=== PATIENT | male | born 1935 | race African-American/Black ===

== ENCOUNTER 2019-09-26 17:21 | Inpatient (IN) | payer MEDICARE ==
[2019-09-26 17:48] VITALS: BMI 24.0
[2019-09-26] MEDS: Atorvastatin Calcium 10 MG TAB PO SCH (22:09)
[2019-09-26] MEDS: Latanoprost 0.005% Ophth Soln 2.5 ml Bottle EA EYE SCH (22:10)
[2019-09-26] MEDS: OPTH EA EYE SCH (22:11)
[2019-09-26] MEDS: COMBIGAN EA EYE SCH (22:11)
[2019-09-27 05:38] LABS: Band 2 % (5-11); Eosinophils 8 % (0-10); Hemoglobin 11.6 g/dL (14.0-18.0); Hypochromia MODERATE=16-30 cells (100X) (0-5/hpf); Lymphocytes 30 % (21-51); MDiff Complete? YES; Mean Corpuscular HGB CONC 31.6 g/dL (32.0-36.0); Mean Corpuscular Hemoglobin 29.8 pg (27.0-31.0); Mean Corpuscular Volume 94.3 fL (78.0-98.0); Mean Platelet Volume 10.2 fL (7.4-10.4); Monocytes 9 % (0-10); Neutrophil 47 % (42-75); Platelet Count 286 thou/uL (130-400); Platelet Morphology Comment Appears Adequate; RBC Distribution Width 13.7 % (11.5-14.5); Reactive Lymphocytes 4 % (0-10); Red Blood Cell (RBC) Count 3.89 mill/uL (4.70-6.10); White Blood Cell (WBC) Count 5.1 thou/uL (4.8-10.8)
[2019-09-27 05:43] LABS: ALT (SGPT) 45 U/L (8-55); AST (SGOT) 51 U/L (5-34); Albumin 3.3 g/dL (3.4-4.8); Alkaline Phosphatase 95 U/L (40-110); Anion Gap 19 mmol/L (10-20); BUN (Urea Nitrogen) 16 mg/dL (8.4-25.7); Bilirubin, Total 0.8 mg/dL (0.2-1.2); Calc. Creatinine Clearance 67 mL/min (70-130); Calcium 9.4 mg/dL (7.8-10.44); Carbon Dioxide 17 mmol/L (23-31); Chloride 104 mmol/L (98-107); Estimated GFR-MDRD 78; Globulin 4.6 g/dL (2.4-3.5); Glucose 94 mg/dL (83-110); Potassium 4.7 mmol/L (3.5-5.1); Protein, Total 7.9 g/dL (5.8-8.1); Sodium 135 mmol/L (136-145)
[2019-09-27] MEDS: Potassium Chloride 20 MEQ TAB PO SCH (08:23)
[2019-09-27] MEDS: Magnesium Oxide 400 MG TAB PO SCH (08:24)
[2019-09-27] MEDS: Clopidogrel Bisulfate 75 MG TAB PO SCH (08:24)
[2019-09-27] MEDS: Aspirin 81 mg Enteric Coated Tablet PO SCH (08:24)
[2019-09-27] MEDS: Allopurinol 100 MG TAB PO SCH (08:24)
[2019-09-27] MEDS: OPTH EA EYE SCH ×2 (08:26→20:49)
[2019-09-27] MEDS: COMBIGAN EA EYE SCH ×2 (08:26→20:49)
--- NOTE | 2019-09-27 09:45 | HP ---
CHIEF COMPLAINT: Deconditioning for therapy. BRIEF HISTORY: This is a pleasant 84-year-old male, who was recently admitted to [facility] with fatigue and acute renal insufficiency. He apparently had active COVID-19 infection. He was asymptomatic other than needing supplemental oxygen. His chest x-ray did show pneumonia suggestive of viral etiology. He apparently was discharged to home, but was unable to take care of himself and so came back to the hospital. He apparently was unable to get out of bed and use the restroom and was not eating well and progressively becoming weaker. He was evaluated in the hospital. He had 2 COVID-19 test done on 24 hours apart on the and and they were negative. Chest x-ray showed persistent infiltrate, but the patient did not need any increase in his oxygen requirements or have any symptomatic fever or shortness of breath. He did have 1 episode of SVT, which was treated with IV adenosine. Echocardiogram was done, which apparently was normal per Dr. Muller. I do not see the report. Currently, the patient is up on the side of his bed, eating breakfast. He denies any questions or concerns. He denies any chest pain or shortness of breath. He denies any palpitations. No fever or chills. PAST MEDICAL HISTORY: 1. Coronary artery disease. 2. Hypertension. 3. Dyslipidemia. 4. Gout. 5. Resolved COVID-19 infection. 6. Deconditioning. 7. One episode of SVT. PAST SURGICAL HISTORY: 1. Appendectomy. 2. Left knee surgery. 3. Tonsillectomy. 4. Eye surgery. ALLERGIES: ARBS AND ASPIRIN. CURRENT MEDICATIONS: He has been transferred here on; 1. Allopurinol 300 mg daily. 2. Aspirin 81 mg daily. The allergy for aspirin is actually just nausea, only so he apparently can do it with food. 3. Atorvastatin 10 mg daily. 4. Plavix 75 mg daily. 5. Combigan eyedrops one drop to each eye b.i.d. 6. Xalatan eye drops 1 drop to each eye at bedtime. 7. Mag-Ox 400 mg daily. 8. Toprol-XL 50 mg daily. 9. Potassium chloride 40 mEq daily. Apparently at home, he was on simvastatin and not atorvastatin. PSYCHOSOCIAL HISTORY: He denies any tobacco, alcohol, or recreational drug abuse. He was active and independent prior to the admission. FAMILY HISTORY: Positive for heart disease in his mother. REVIEW OF SYSTEMS: CARDIOVASCULAR: Denies any chest pain, shortness of breath, palpitations, PND, orthopnea, or pedal edema. RESPIRATORY: Denies any chronic cough, expectoration, or pleuritic-type chest pain. GASTROINTESTINAL: Denies any nausea, vomiting, diarrhea, constipation, hematemesis, melena, or hematochezia. GENITOURINARY: Denies any frequency, urgency, dysuria, or hematuria. EXTREMITIES: Occasional joint pains. CENTRAL NERVOUS SYSTEM: Denies any focal numbness, weakness, or fainting spells. SKIN: Denies any rash. HEENT: Denies any difficulty with speech, vision, hearing, or swallowing. PHYSICAL EXAMINATION: GENERAL: Pleasant 84-year-old male, who is up on the side of his bed and denies any concerns. He responds appropriately to questions. He is not in any distress. VITAL SIGNS: He is afebrile. Heart rate 105, respirations 18, oxygen saturation 94% on room air, blood pressure 147/83. HEENT: Normocephalic and atraumatic. Pupils are equally reacting to light and accommodation. NECK: No JVD, thyromegaly, cervical lymphadenopathy, or throat exudates. No carotid bruits. CARDIOVASCULAR: S1 and S2 plus, sinus tachycardia. RESPIRATORY: Normal vesicular breath sounds with occasional crackles. ABDOMEN: Soft, nontender. Bowel sounds heard in all quadrants. EXTREMITIES: Without cyanosis or clubbing. Peripheral pulses are palpable. CENTRAL NERVOUS SYSTEM: Awake and responsive. Cranial nerves 2 through 12 intact. Generalized weakness otherwise nonfocal. LABORATORY DATA: Laboratory values done this morning shows a white count of 5.1, hemoglobin and hematocrit are 11.6 and 36.7. Chemistry shows a sodium of 135, potassium 4.7, BUN and creatinine 16 and 0.93. AST slightly elevated at 51. IMPRESSION: 1. Resolved COVID-19 infection with pneumonitis. 2. Resolved acute hypoxemic respiratory failure. 3. Coronary artery disease. 4. Hypertension. 5. Dyslipidemia. 6. Gout. 7. Possible gastroesophageal reflux disease. The patient states that he was on Nexium at home and deconditioning. PLAN: 1. Continue current medications. 2. Heart healthy diet. 3. he is on Plavix, so we will add famotidine 20 mg b.i.d. 4. PT/OT eval and treat. 5. DVT prophylaxis with PlexiPulses. 6. Decubitus precautions. 7. Stress ulcer prophylaxis with famotidine. 8. Routine laboratory values. 9. Monitor for any worsening of his respiratory status. 10. Discussed with the patient and nursing in detail. All questions were answered. Job ID: [id number]
[2019-09-27] MEDS: Famotidine 20 MG TAB PO SCH ×2 (10:41→20:46)
[2019-09-27] MEDS: Atorvastatin Calcium 10 MG TAB PO SCH (20:46)
[2019-09-27] MEDS: Latanoprost 0.005% Ophth Soln 2.5 ml Bottle EA EYE SCH (20:46)
[2019-09-28] MEDS: Potassium Chloride 20 MEQ TAB PO SCH (08:40)
[2019-09-28] MEDS: Clopidogrel Bisulfate 75 MG TAB PO SCH (08:45)
[2019-09-28] MEDS: Allopurinol 100 MG TAB PO SCH (08:46)
[2019-09-28] MEDS: Magnesium Oxide 400 MG TAB PO SCH (08:47)
[2019-09-28] MEDS: Aspirin 81 mg Enteric Coated Tablet PO SCH (08:47)
[2019-09-28] MEDS: Famotidine 20 MG TAB PO SCH ×2 (08:48→21:19)
[2019-09-28] MEDS: OPTH EA EYE SCH ×2 (08:54→21:21)
[2019-09-28] MEDS: COMBIGAN EA EYE SCH ×2 (08:54→21:21)
[2019-09-28] MEDS: Atorvastatin Calcium 10 MG TAB PO SCH (21:20)
[2019-09-28] MEDS: Latanoprost 0.005% Ophth Soln 2.5 ml Bottle EA EYE SCH (21:20)
--- NOTE | 2019-09-29 07:31 | PRG ---
DATE OF SERVICE: 09/28/2019 SUBJECTIVE: The patient is an 84-year-old male with a history of recent acute COVID-19 infection with hypoxia and pneumonia, who had resolution of his pneumonia, but continued to be unable to maintain his ADLs and therefore was admitted to [facility] on September 25 for PT, OT. At this time, the patient is feeling well, resting in the bed, eating his supper. He denies any symptoms of chest pain or shortness of breath at rest, but is very weak. OBJECTIVE: VITAL SIGNS: Show his blood pressure to be 132/66, temperature is 98.6, pulse 72, respirations 18, and O2 sats 96% on room air. LUNGS: Clear. CARDIAC: Showed regular rhythm. ABDOMEN: Soft and nontender. SKIN AND EXTREMITIES: Showed no edema. ASSESSMENT: 1. Deconditioning secondary to recent COVID-19 infection. 2. Coronary artery disease, asymptomatic. 3. Hypertension, controlled to goal. 4. Resolved hypoxemia and pneumonia from COVID-19. 5. History of supraventricular tachycardia with no recurrence. PLAN: Continue PT, OT. Continue to monitor for decompensation of cardiopulmonary status. Continue DVT and stress ulcer prophylaxis. Job ID: [id number]
[2019-09-29] MEDS: Aspirin 81 mg Enteric Coated Tablet PO SCH (09:39)
[2019-09-29] MEDS: Magnesium Oxide 400 MG TAB PO SCH (09:39)
[2019-09-29] MEDS: Potassium Chloride 20 MEQ TAB PO SCH (09:39)
[2019-09-29] MEDS: Allopurinol 100 MG TAB PO SCH (09:39)
[2019-09-29] MEDS: Famotidine 20 MG TAB PO SCH ×2 (09:40→20:49)
[2019-09-29] MEDS: COMBIGAN EA EYE SCH ×2 (09:40→20:50)
[2019-09-29] MEDS: OPTH EA EYE SCH ×2 (09:40→20:50)
[2019-09-29] MEDS: Clopidogrel Bisulfate 75 MG TAB PO SCH (09:40)
--- NOTE | 2019-09-29 19:54 | PRG ---
DATE OF SERVICE: 09/29/2019 SUBJECTIVE: The patient feels well, sitting up in the chair. States he is ready for more therapy. Has no cough, shortness of breath, fever, or chills. OBJECTIVE: VITAL SIGNS: Shows temperature is 97, pulse 84, respiratory rate is 20, O2 saturations 95% on room air, and blood pressure 132/69. ASSESSMENT: 1. Resolved pneumonia secondary to COVID-19. 2. Stable hypertension. 3. Asymptomatic coronary artery disease. 4. Deconditioning, ready for more therapy tomorrow. PLAN: 1. Continue PT, OT. 2. Continue to monitor vital signs, respiratory status with therapy. 3. Continue DVT and stress ulcer prophylaxis. Job ID: [id number]
[2019-09-29] MEDS: Atorvastatin Calcium 10 MG TAB PO SCH (20:50)
[2019-09-29] MEDS: Latanoprost 0.005% Ophth Soln 2.5 ml Bottle EA EYE SCH (20:50)
[2019-09-30] MEDS: Clopidogrel Bisulfate 75 MG TAB PO SCH (08:37)
[2019-09-30] MEDS: Aspirin 81 mg Enteric Coated Tablet PO SCH (08:37)
[2019-09-30] MEDS: Potassium Chloride 20 MEQ TAB PO SCH (08:37)
[2019-09-30] MEDS: Allopurinol 100 MG TAB PO SCH (08:37)
[2019-09-30] MEDS: Magnesium Oxide 400 MG TAB PO SCH (08:37)
[2019-09-30] MEDS: Famotidine 20 MG TAB PO SCH ×2 (08:38→20:00)
[2019-09-30] MEDS: OPTH EA EYE SCH ×2 (08:40→22:19)
[2019-09-30] MEDS: COMBIGAN EA EYE SCH ×2 (08:40→22:19)
[2019-09-30] MEDS: Metoprolol Tartrate 25 MG TAB PO SCH ×2 (09:56→20:01)
[2019-09-30] MEDS: Aspirin Chewable 81 MG TAB PO SCH (09:56)
[2019-09-30] MEDS: Atorvastatin Calcium 10 MG TAB PO SCH (20:01)
[2019-09-30] MEDS: Latanoprost 0.005% Ophth Soln 2.5 ml Bottle EA EYE SCH (20:01)
--- NOTE | 2019-10-01 05:13 | PRG ---
DATE OF SERVICE: 09/30/2019 SUBJECTIVE: Mr. Roberts is up on the side of his bed. He just finished his lunch. He denies any questions or concerns. He does have problems with swallowing pills. He does not have any issues with eating or drinking. Nursing have not noticed any coughing spells. He states that this has been going on for years, so I have changed his aspirin to chewable aspirin and changed the metoprolol from succinate to tartrate. He states that he feels like he is getting stronger. OBJECTIVE: VITAL SIGNS: He is afebrile. Heart rate 90, respirations 18, oxygen saturation 96% on room air, blood pressure 117/71. CARDIOVASCULAR: S1 and S2 plus. RESPIRATORY: Normal vesicular breath sounds. ABDOMEN: Soft and nontender. Bowel sounds heard in all quadrants. EXTREMITIES: Without cyanosis or clubbing. CENTRAL NERVOUS SYSTEM: Improving deconditioning. IMPRESSION: 1. Recent COVID-19 infection. He has had 2 negative test results and is asymptomatic. 2. Coronary artery disease. 3. Hypertension. 4. Dyslipidemia. 5. Gout. 6. Deconditioning. PLAN: 1. Continue current medications. 2. Heart healthy diet. 3. Monitor blood pressure and adjust medications as needed. 4. Monitor heart rate and rhythm. 5. Physical therapy. 6. Routine laboratory values. 7. DVT prophylaxis with PlexiPulses. 8. Decubitus precautions. 9. Stress ulcer prophylaxis. Job ID: [id number]
[2019-10-01] MEDS: Clopidogrel Bisulfate 75 MG TAB PO SCH (09:02)
[2019-10-01] MEDS: Metoprolol Tartrate 25 MG TAB PO SCH ×2 (09:02→20:15)
[2019-10-01] MEDS: Allopurinol 100 MG TAB PO SCH (09:02)
[2019-10-01] MEDS: Magnesium Oxide 400 MG TAB PO SCH (09:02)
[2019-10-01] MEDS: Famotidine 20 MG TAB PO SCH ×2 (09:02→20:15)
[2019-10-01] MEDS: Potassium Chloride 20 MEQ TAB PO SCH (09:02)
[2019-10-01] MEDS: Aspirin Chewable 81 MG TAB PO SCH (09:02)
[2019-10-01] MEDS: OPTH EA EYE SCH ×2 (09:03→20:16)
[2019-10-01] MEDS: COMBIGAN EA EYE SCH (09:03)
--- NOTE | 2019-10-01 12:58 | PRG ---
DATE OF SERVICE: 10/01/2019 SUBJECTIVE: Mr. Roberts is up on the side of his bed, eating the lunch. He is happy with his progress. He states that he already had 2 sessions of therapy. No concerns or questions. Discussed with Nursing. OBJECTIVE: VITAL SIGNS: He is afebrile, heart rate 85, respirations 20, oxygen saturation 99% on room air, blood pressure 118/71. CARDIOVASCULAR: S1 and S2 plus. RESPIRATORY: Normal vesicular breath sounds. ABDOMEN: Soft, nontender. Bowel sounds heard in all quadrants. EXTREMITIES: Without cyanosis or clubbing. CENTRAL NERVOUS SYSTEM: Improving deconditioning. IMPRESSION: 1. Resolved COVID-19 infection. 2. Resolved dehydration. 3. Improving deconditioning. 4. Coronary artery disease. 5. Hypertension. 6. Dyslipidemia. 7. Gout. PLAN: 1. Continue current medications. 2. Heart healthy diet. 3. Monitor blood pressure and adjust medications as needed. 4. Monitor for any decompensation of heart disease. 5. Monitor respiratory status. 6. DVT prophylaxis with PlexiPulses. 7. Decubitus precautions. 8. Stress ulcer prophylaxis. 9. Routine laboratory values and therapy. Job ID: [id number]
[2019-10-01] MEDS: BRIMONIDINE 0.2% OPHTH DROPS EA EYE SCH (20:16)
[2019-10-01] MEDS: Atorvastatin Calcium 10 MG TAB PO SCH (20:16)
[2019-10-01] MEDS: TIMOLOL 0.5% EA EYE SCH (20:16)
[2019-10-01] MEDS: Latanoprost 0.005% Ophth Soln 2.5 ml Bottle EA EYE SCH (20:16)
[2019-10-02] MEDS: Clopidogrel Bisulfate 75 MG TAB PO SCH (08:09)
[2019-10-02] MEDS: Aspirin Chewable 81 MG TAB PO SCH (08:09)
[2019-10-02] MEDS: Potassium Chloride 20 MEQ TAB PO SCH (08:09)
[2019-10-02] MEDS: Famotidine 20 MG TAB PO SCH ×2 (08:09→20:59)
[2019-10-02] MEDS: Magnesium Oxide 400 MG TAB PO SCH (08:09)
[2019-10-02] MEDS: Metoprolol Tartrate 25 MG TAB PO SCH ×2 (08:09→20:59)
[2019-10-02] MEDS: Allopurinol 100 MG TAB PO SCH (08:09)
[2019-10-02] MEDS: TIMOLOL 0.5% EA EYE SCH ×2 (10:00→21:00)
[2019-10-02] MEDS: BRIMONIDINE 0.2% OPHTH DROPS EA EYE SCH ×2 (10:00→20:59)
[2019-10-02] MEDS: OPTH EA EYE SCH ×2 (10:00→21:00)
--- NOTE | 2019-10-02 13:15 | PRG ---
DATE OF SERVICE: 10/02/2019 SUBJECTIVE: Mr. Roberts is up in his chair, getting ready to eat his lunch. He states he therapy. Denies any chest pain or shortness of breath. Discussed with nursing, no concerns. OBJECTIVE: VITAL SIGNS: He is afebrile. Heart rate 85, respirations 18, oxygen saturation 98% on room air, blood pressure 129/71. CARDIOVASCULAR: S1 and S2 plus. RESPIRATORY: Normal vesicular breath sounds. ABDOMEN: Soft, nontender. Bowel sounds heard in all quadrants. EXTREMITIES: Without cyanosis or clubbing. CENTRAL NERVOUS SYSTEM: Improving deconditioning. IMPRESSION: 1. Resolved COVID-19 pneumonia. 2. Resolved dehydration. 3. Improving deconditioning. 4. Coronary artery disease. 5. Hypertension. 6. Dyslipidemia. 7. Gout. PLAN: 1. Continue current medications. 2. Heart healthy diet. 3. Physical therapy. 4. Nutritional support. 5. DVT prophylaxis with PlexiPulses. 6. Decubitus precaution. 7. Stress ulcer prophylaxis. 8. Routine laboratory values. Job ID: [id number]
[2019-10-02] MEDS: Latanoprost 0.005% Ophth Soln 2.5 ml Bottle EA EYE SCH (20:59)
[2019-10-02] MEDS: Atorvastatin Calcium 10 MG TAB PO SCH (20:59)
[2019-10-03] MEDS: Potassium Chloride 20 MEQ TAB PO SCH (09:05)
[2019-10-03] MEDS: Famotidine 20 MG TAB PO SCH ×2 (09:05→20:59)
[2019-10-03] MEDS: Allopurinol 100 MG TAB PO SCH (09:05)
[2019-10-03] MEDS: Clopidogrel Bisulfate 75 MG TAB PO SCH (09:06)
[2019-10-03] MEDS: Aspirin Chewable 81 MG TAB PO SCH (09:06)
[2019-10-03] MEDS: Magnesium Oxide 400 MG TAB PO SCH (09:06)
[2019-10-03] MEDS: Metoprolol Tartrate 25 MG TAB PO SCH ×2 (09:06→21:00)
[2019-10-03] MEDS: OPTH EA EYE SCH ×2 (09:09→21:02)
[2019-10-03] MEDS: TIMOLOL 0.5% EA EYE SCH ×2 (09:09→21:02)
[2019-10-03] MEDS: BRIMONIDINE 0.2% OPHTH DROPS EA EYE SCH ×2 (09:10→21:02)
--- NOTE | 2019-10-03 13:23 | PRG ---
DATE OF SERVICE: 10/03/2019 SUBJECTIVE: Mr. Roberts is up on the side of his bed, eating lunch. He is happy with his progress. He feels like he is getting stronger every day. Discussed with nursing and no concerns. No family at bedside. OBJECTIVE: VITAL SIGNS: He is afebrile, heart rate 64, respirations 20, oxygen saturation 100% on room air, blood pressure 124/66. CARDIOVASCULAR: S1 and S2 plus. RESPIRATORY: Normal vesicular breath sounds. ABDOMEN: Soft and nontender. Bowel sounds heard in all quadrants. EXTREMITIES: Without cyanosis or clubbing. CENTRAL NERVOUS SYSTEM: Improving deconditioning. IMPRESSION: 1. Resolved COVID-19 infection. 2. Resolved dehydration. 3. Hypertension. 4. Coronary artery disease. 5. Dyslipidemia. 6. Gout. 7. Deconditioning, improving. 8. Hyponatremia and anemia, likely due to chronic disease. PLAN: 1. Continue current medications. 2. Nutritional support. 3. DVT prophylaxis with PlexiPulses. 4. Decubitus precautions. 5. Stress ulcer prophylaxis. 6. Routine laboratory values. 7. Recheck CBC and BMP in the morning. 8. Continue therapy. Job ID: [id number]
[2019-10-03] MEDS: Atorvastatin Calcium 10 MG TAB PO SCH (20:59)
[2019-10-03] MEDS: Latanoprost 0.005% Ophth Soln 2.5 ml Bottle EA EYE SCH (20:59)
[2019-10-04 06:06] LABS: Anion Gap 14 mmol/L (10-20); BUN (Urea Nitrogen) 19 mg/dL (8.4-25.7); Band 1 % (5-11); Calc. Creatinine Clearance 53 mL/min (70-130); Calcium 9.4 mg/dL (7.8-10.44); Carbon Dioxide 23 mmol/L (23-31); Chloride 104 mmol/L (98-107); Eosinophils 4 % (0-10); Estimated GFR-MDRD 72; Glucose 89 mg/dL (83-110); Hemoglobin 11.4 g/dL (14.0-18.0); Hypochromia SLIGHT = 6-15 cells (100X) (0-5/hpf); Lymphocytes 53 % (21-51); MDiff Complete? YES; Mean Corpuscular HGB CONC 30.8 g/dL (32.0-36.0); Mean Corpuscular Hemoglobin 29.5 pg (27.0-31.0); Mean Corpuscular Volume 95.8 fL (78.0-98.0); Mean Platelet Volume 10.1 fL (7.4-10.4); Metamyelocyte 2 % (0-0); Monocytes 11 % (0-10); Neutrophil 28 % (42-75); Platelet Count 218 thou/uL (130-400); Platelet Morphology Comment Appears Adequate; Potassium 4.5 mmol/L (3.5-5.1); RBC Distribution Width 14.7 % (11.5-14.5); Red Blood Cell (RBC) Count 3.86 mill/uL (4.70-6.10); Sodium 136 mmol/L (136-145); White Blood Cell (WBC) Count 4.3 thou/uL (4.8-10.8)
[2019-10-04] MEDS: Famotidine 20 MG TAB PO SCH ×2 (10:13→20:39)
[2019-10-04] MEDS: Potassium Chloride 20 MEQ TAB PO SCH (10:14)
[2019-10-04] MEDS: Metoprolol Tartrate 25 MG TAB PO SCH ×2 (10:14→20:39)
[2019-10-04] MEDS: Allopurinol 100 MG TAB PO SCH (10:14)
[2019-10-04] MEDS: BRIMONIDINE 0.2% OPHTH DROPS EA EYE SCH ×2 (10:15→20:38)
[2019-10-04] MEDS: Aspirin Chewable 81 MG TAB PO SCH (10:15)
[2019-10-04] MEDS: OPTH EA EYE SCH ×2 (10:15→20:37)
[2019-10-04] MEDS: TIMOLOL 0.5% EA EYE SCH ×2 (10:15→20:37)
[2019-10-04] MEDS: Magnesium Oxide 400 MG TAB PO SCH (10:15)
[2019-10-04] MEDS: Clopidogrel Bisulfate 75 MG TAB PO SCH (10:15)
--- NOTE | 2019-10-04 10:57 | PRG ---
DATE OF SERVICE: 10/04/2019 SUBJECTIVE: Mr. Roberts is doing well. He is up in his chair. He just finished his breakfast. His son is in the room. All questions answered. OBJECTIVE: VITAL SIGNS: He is afebrile, heart rate 78, respirations 16, oxygen saturation 100% on room air, blood pressure 127/72. CARDIOVASCULAR SYSTEM: S1 and S2 plus. RESPIRATORY: Normal vesicular breath sounds. ABDOMEN: Soft, nontender. Bowel sounds heard in all quadrants. EXTREMITIES: Without cyanosis or clubbing. CENTRAL NERVOUS SYSTEM: Improving deconditioning. LABORATORY VALUES: White count 4.3, H and H 7.4 and 37. Sodium 136, potassium 4.5, BUN and creatinine 19 and 1.7. IMPRESSION: 1. Resolved COVID-19 infection. 2. Resolved dehydration. 3. Coronary artery disease. 4. Hypertension. 5. Dyslipidemia. 6. Improving deconditioning. PLAN: 1. Continue current medications. 2. Heart healthy diet. 3. DVT prophylaxis with PlexiPulses. 4. Decubitus precautions. 5. Stress ulcer prophylaxis. 6. Routine laboratory values. 7. Physical therapy. 8. Discharge planning. Per therapy, they think that he should be ready to go home on the . Job ID: [id number]
[2019-10-04] MEDS: Atorvastatin Calcium 10 MG TAB PO SCH (20:39)
[2019-10-04] MEDS: Latanoprost 0.005% Ophth Soln 2.5 ml Bottle EA EYE SCH (20:39)
[2019-10-05] MEDS: Famotidine 20 MG TAB PO SCH ×2 (08:30→20:51)
[2019-10-05] MEDS: Potassium Chloride 20 MEQ TAB PO SCH (08:30)
[2019-10-05] MEDS: Aspirin Chewable 81 MG TAB PO SCH (08:31)
[2019-10-05] MEDS: Clopidogrel Bisulfate 75 MG TAB PO SCH (08:31)
[2019-10-05] MEDS: Magnesium Oxide 400 MG TAB PO SCH (08:31)
[2019-10-05] MEDS: Allopurinol 100 MG TAB PO SCH (08:31)
[2019-10-05] MEDS: Metoprolol Tartrate 25 MG TAB PO SCH ×2 (08:31→20:51)
[2019-10-05] MEDS: TIMOLOL 0.5% EA EYE SCH ×2 (08:32→20:52)
[2019-10-05] MEDS: BRIMONIDINE 0.2% OPHTH DROPS EA EYE SCH ×2 (08:32→20:52)
[2019-10-05] MEDS: OPTH EA EYE SCH ×2 (08:32→20:52)
--- NOTE | 2019-10-05 15:52 | PRG ---
DATE OF SERVICE: 10/05/2019 SUBJECTIVE: Mr. Roberts is up in his chair. He just finished his lunch. He is planning on just walking in his room with his walker. I advised him to make sure he calls Nursing to have somebody with him. No family at bedside. OBJECTIVE: VITAL SIGNS: He is afebrile, heart rate 91, respirations 23, oxygen saturation 98% on room air, blood pressure 105/63. CARDIOVASCULAR SYSTEM: S1 and S2 plus. RESPIRATORY SYSTEM: Normal vesicular breath sounds. ABDOMEN: Soft and nontender. Bowel sounds heard in all quadrants. EXTREMITIES: Without cyanosis or clubbing. CENTRAL NERVOUS SYSTEM: Improving deconditioning. IMPRESSION: 1. Resolved COVID-19 infection. 2. Resolved dehydration. 3. Improving deconditioning. 4. Hypertension. 5. Dyslipidemia. 6. Coronary artery disease. PLAN: 1. Continue current medications. 2. Physical therapy. 3. Discharge planning. 4. Heart-healthy diet. 5. DVT prophylaxis with PlexiPulses. 6. Decubitus precautions. 7. Stress ulcer prophylaxis. 8. Routine laboratory values. Job ID: [id number]
[2019-10-05] MEDS: Latanoprost 0.005% Ophth Soln 2.5 ml Bottle EA EYE SCH (20:50)
[2019-10-05] MEDS: Atorvastatin Calcium 10 MG TAB PO SCH (20:51)
[2019-10-06] MEDS: Allopurinol 100 MG TAB PO SCH (09:19)
[2019-10-06] MEDS: Famotidine 20 MG TAB PO SCH ×2 (09:19→21:01)
[2019-10-06] MEDS: Metoprolol Tartrate 25 MG TAB PO SCH ×2 (09:19→21:01)
[2019-10-06] MEDS: Potassium Chloride 20 MEQ TAB PO SCH (09:19)
[2019-10-06] MEDS: Aspirin Chewable 81 MG TAB PO SCH (09:20)
[2019-10-06] MEDS: Magnesium Oxide 400 MG TAB PO SCH (09:20)
[2019-10-06] MEDS: BRIMONIDINE 0.2% OPHTH DROPS EA EYE SCH ×2 (09:20→21:02)
[2019-10-06] MEDS: Clopidogrel Bisulfate 75 MG TAB PO SCH (09:20)
[2019-10-06] MEDS: OPTH EA EYE SCH ×2 (09:21→21:02)
[2019-10-06] MEDS: TIMOLOL 0.5% EA EYE SCH ×2 (09:21→21:02)
--- NOTE | 2019-10-06 15:18 | PRG ---
DATE OF SERVICE: 10/06/2019 SUBJECTIVE: Mr. Roberts is doing well up on the side of his bed. He is looking forward to his discharge on Monday. No family at bedside. OBJECTIVE: VITAL SIGNS: He is afebrile, heart rate 82, respirations 16, oxygen saturation 97% on room air, blood pressure 116/58. CARDIOVASCULAR: S1 and S2 plus. RESPIRATORY: Normal vesicular breath sounds. ABDOMEN: Soft, nontender. Bowel sounds heard in all quadrants. EXTREMITIES: Without cyanosis or clubbing. CENTRAL NERVOUS SYSTEM: Improving deconditioning. IMPRESSION: 1. Resolved COVID-19 infection. 2. Resolved dehydration. 3. Hypertension. 4. Dyslipidemia. 5. Coronary artery disease. 6. Improving deconditioning. PLAN: 1. Continue current medications. 2. Heart healthy diet. 3. Physical therapy. 4. Discharge planning. 5. Routine laboratory values. 6. DVT prophylaxis with PlexiPulses. 7. Decubitus precautions. 8. Stress ulcer prophylaxis. Job ID: [id number]
[2019-10-06] MEDS: Latanoprost 0.005% Ophth Soln 2.5 ml Bottle EA EYE SCH (21:00)
[2019-10-06] MEDS: Atorvastatin Calcium 10 MG TAB PO SCH (21:01)
[2019-10-07] MEDS: Potassium Chloride 20 MEQ TAB PO SCH (08:40)
[2019-10-07] MEDS: Allopurinol 100 MG TAB PO SCH (08:40)
[2019-10-07] MEDS: Aspirin Chewable 81 MG TAB PO SCH (08:40)
[2019-10-07] MEDS: Clopidogrel Bisulfate 75 MG TAB PO SCH (08:40)
[2019-10-07] MEDS: Famotidine 20 MG TAB PO SCH ×2 (08:40→20:16)
[2019-10-07] MEDS: Metoprolol Tartrate 25 MG TAB PO SCH ×2 (08:41→20:16)
[2019-10-07] MEDS: Magnesium Oxide 400 MG TAB PO SCH (08:41)
[2019-10-07] MEDS: BRIMONIDINE 0.2% OPHTH DROPS EA EYE SCH ×2 (08:41→20:17)
[2019-10-07] MEDS: TIMOLOL 0.5% EA EYE SCH ×2 (08:42→20:17)
[2019-10-07] MEDS: OPTH EA EYE SCH ×2 (08:42→20:17)
--- NOTE | 2019-10-07 13:42 | PRG ---
DATE OF SERVICE: 10/07/2019 SUBJECTIVE: Mr. Roberts is doing well. He is looking forward to going home tomorrow. Therapy and nursing have deemed him safe to be discharged. The patient states that he normally uses [facility] in [place] for his medications and I advised him I will send in a month's supply. He apparently had some home health nurse come by and check on him and it was the first visit when he had to come to the hospital. He is going to check with his daughter and see which company it was, otherwise he does not have any preference. OBJECTIVE: VITAL SIGNS: He is afebrile. Heart rate 72, respirations 18, oxygen saturation 97% on room air, blood pressure 115/64. CARDIOVASCULAR: S1, S2 plus. RESPIRATORY: Normal vesicular breath sounds. ABDOMEN: Soft, nontender. Bowel sounds heard in all quadrants. EXTREMITIES: Without cyanosis or clubbing. CENTRAL NERVOUS SYSTEM: Improving deconditioning. IMPRESSION: 1. Coronary artery disease. 2. Hypertension. 3. Dyslipidemia. 4. Resolved dehydration. 5. Resolved COVID-19 infection. 6. One episode of SVT. 7. Gout, no further flare up. 8. Much improved deconditioning. PLAN: 1. Continue current medications. 2. Nutritional support with heart healthy diet. 3. Discharge planning. 4. Decubitus precautions. 5. Stress-ulcer prophylaxis. 6. Arrange for home health. 7. We will send in a month's supply to [facility] in [place]. 8. The patient is deemed to be homebound. He does not drive. He does meet criteria for home health with the continued physical therapy and occupational therapy per therapy recommendations here. He also had episode of SVT with no further issues and will probably need half-way visits to monitor his vital signs. This note to be considered as a [id number] for home health purposes. Job ID: [id number]
[2019-10-07] MEDS: Atorvastatin Calcium 10 MG TAB PO SCH (20:15)
[2019-10-07] MEDS: Latanoprost 0.005% Ophth Soln 2.5 ml Bottle EA EYE SCH (20:16)
[2019-10-08 07:38] VITALS: TEMP 98.1
[2019-10-08] MEDS: Aspirin Chewable 81 MG TAB PO SCH (08:28)
[2019-10-08] MEDS: Clopidogrel Bisulfate 75 MG TAB PO SCH (08:28)
[2019-10-08] MEDS: Allopurinol 100 MG TAB PO SCH (08:28)
[2019-10-08] MEDS: Potassium Chloride 20 MEQ TAB PO SCH (08:28)
[2019-10-08] MEDS: Famotidine 20 MG TAB PO SCH (08:29)
[2019-10-08] MEDS: Magnesium Oxide 400 MG TAB PO SCH (08:29)
[2019-10-08] MEDS: Metoprolol Tartrate 25 MG TAB PO SCH (08:29)
[2019-10-08] MEDS: OPTH EA EYE SCH (08:29)
[2019-10-08] MEDS: BRIMONIDINE 0.2% OPHTH DROPS EA EYE SCH (08:29)
[2019-10-08] MEDS: TIMOLOL 0.5% EA EYE SCH (08:29)
[2019-10-08 10:16] VITALS: BP 138/63
--- NOTE | 2019-10-08 15:19 | DIS ---
DATE OF ADMISSION: 09/26/2019 DATE OF DISCHARGE: 10/08/2019 PRINCIPAL DIAGNOSIS: Deconditioning, much improved. SECONDARY DIAGNOSES: 1. Coronary artery disease. 2. Hypertension. 3. Dyslipidemia. 4. Recent COVID-19 infection. 5. Resolved dehydration. 6. Gout. 7. One episode of supraventricular tachycardia. COMPLICATIONS: None. ADVERSE REACTIONS: None. PROCEDURES: None. CONSULTATIONS: Physical Therapy and Occupational Therapy. HOSPITAL COURSE: The patient was admitted as a transfer from [facility] with fatigue and acute renal insufficiency. He was treated with IV fluids and was noted to be significantly weak. He had a recent COVID-19 infection, so repeat testing was done, which was negative. He also had an echocardiogram done, which was unremarkable. He was felt to be a candidate for [facility] facility for continued therapy before he goes home. He has done remarkably well. He was able to ambulate with the help of his walker. He was deemed to have reached maximum medical improvement and was felt to be safe for discharge to home by therapy and nursing. He was discharged to home today. He apparently had [facility] and they have been informed to resume care. He is to follow up with his PCP to get his potassium level checked. I told him that I have sent in a month's supply of all his medicines, but for his potassium I have only sent a 15-day supply. PHYSICAL EXAMINATION: VITAL SIGNS: On the day of discharge, the patient is afebrile. Heart rate 80 respirations 18, oxygen saturation 99% on room air, blood pressure 118/66. CARDIOVASCULAR: S1 and S2 plus. RESPIRATORY: Normal vesicular breath sounds. ABDOMEN: Soft, nontender. Bowel sounds heard in all quadrants. EXTREMITIES: Without cyanosis or clubbing. Peripheral pulses are palpable. CENTRAL NERVOUS SYSTEM: Improving deconditioning. DISCHARGE MEDICATIONS: 1. Allopurinol 300 mg daily. 2. Aspirin 81 mg daily. 3. Simvastatin 20 mg daily. 4. Plavix 75 mg daily. 5. Pepcid 20 mg b.i.d. 6. Mag-Ox 400 mg daily. 7. Metoprolol succinate 50 mg XL daily. 8. Potassium 40 mEq daily. 9. He is also on multiple eye drops, which is Xalatan 0.005% one drop to each eye at bedtime. 10. Brimonidine 0.2% eyedrops one drop to each eye twice a day. 11. Timolol 0.5% eyedrops one drop to each eye b.i.d. DISCHARGE INSTRUCTIONS: Activity as tolerated. Heart healthy diet. Outpatient followup with PCP. PCP to manage his therapy. They can use my note from yesterday as a [id number] or they can use this note as a [id number]. The patient is homebound. He does qualify for therapy. He does require [facility] visit to monitor his heart rate and blood pressure, and I would like [facility] to draw a BMP probably in the next couple of days and send the results either to me or to his PCP. I have sent prescriptions to [facility] in [place]. For full details, please see chart. Total time spent on this discharge including care coordination was 35 minutes. Job ID: [id number]
== END 2019-10-08 11:02 | disposition home health service (06) | DRG 948 ==
LOC: NAV ACUTE 17:21
PROVIDERS: ADMIT Internal Medicine; ATTEND Internal Medicine
DX: R53.81 Other malaise (principal); I47.1 Supraventricular tachycardia; E87.1 Hypo-osmolality and hyponatremia; I25.10 Atherosclerotic heart disease of native coronary artery without angina pectoris; E78.5 Hyperlipidemia, unspecified; I10 Essential (primary) hypertension; D63.8 Anemia in other chronic diseases classified elsewhere; E86.0 Dehydration; M10.9 Gout, unspecified; Z88.8 Allergy status to other drugs, medicaments and biological substances; Z90.49 Acquired absence of other specified parts of digestive tract; Z88.6 Allergy status to analgesic agent; Z87.01 Personal history of pneumonia (recurrent)
CPT/HCPCS: 36415; 80048; 80053; 85025